=== PATIENT | male | born 1950 | race Caucasian/White ===

== ENCOUNTER → 2016-11-27 | Outpatient (CLI) | payer OTHER ==
[~2016-11-27] MED LIST: ATEN100T8 PO; CLR/5 PO; EZET10TA47 PO; LTN/10 PO; ZCR40 PO
--- NOTE | 2016-11-27 09:07 | DIAGNOSTIC IMAGING REPORT ---
RENAL ULTRASOUND HISTORY: Hydronephrosis. COMPARISON: None. FINDINGS: Right kidney: 11.3 cm. No hydronephrosis. Normal corticomedullary differentiation. Mild to moderate cortical thinning. Left kidney: 12.4 cm. No hydronephrosis. Normal corticomedullary differentiation. Mild cortical thinning. Bladder: Not well distended. No bladder wall thickening. The bilateral ureteral jets were identified. IMPRESSION: Normal renal ultrasound. Bilateral cortical thinning. Electronically signed by: Ministerio Taylor M.D. 11/27/2016 9:06 AM Dictated Date/Time: 11/27/2016 9:04 AM
== END | disposition home or self-care (01) ==
LOC: C.ULTR 08:31
PROVIDERS: ATTEND Urology
DX: N31.9 Neuromuscular dysfunction of bladder, unspecified (principal)